=== PATIENT | male | born 1990 | race Caucasian/White ===

== ENCOUNTER 2025-01-25 19:37 | Emergency (ER) | payer OTHER ==
[~2025-01-25] VITALS: Ht 172.7 cm; Wt 84.1 kg
[2025-01-25 20:22] VITALS: TEMP 98.2
[2025-01-25 20:47] VITALS: BP 112/78; PULSE 77; RESP 16; O2SAT 98
== END 2025-01-25 23:46 ==
LOC: EMS 19:53
DX: Z03.821 Encounter for observation for suspected ingested foreign body ruled out (principal); F10.90 Alcohol use, unspecified, uncomplicated; Y90.9 Presence of alcohol in blood, level not specified
CPT/HCPCS: 74176; 99284; Z7502